=== PATIENT | female | born 1980 | race Caucasian/White ===

== ENCOUNTER 2019-08-05 16:18 | Emergency (ER) | payer BC ==
[2019-08-05 16:23] VITALS: BP 142/102
--- NOTE | 2019-08-05 16:39 | ED ---
Bite Injury/Animal - HPI Summary HPI Summary: 38-year-old female presents to the emergency department today after being bit by her peripheral dog approximately one hour ago to the dorsal aspect of her left foot. There is no obvious puncture wound consistent with patient's report dogbite approximately 1 cm in diameter proximal to the second phalanx on the dorsal aspect of the left foot. There is noted edema and mild ecchymosis but hemostasis is achieved. Patient states her dog is being put on this evening and she deferred rabies immunoglobulin as she believes her doctor for rabies. Patient is not up-to-date with her tetanus immunizations. Patient endorses 6 out of 10 pain which is made better with elevation and ice. pt states dog "has not had any shots in 2 years". Patient has not taken anything for pain prior to arrival. Patient otherwise feels well and denies fever, chest pain, abdominal pain, rash. Sx hx and fhx noncontributory. - History of Current Complaint Chief Complaint: EDAnimalBite Stated Complaint: ANIMAL BITE L FOOT PER PT Time Seen by Provider: 08/05/19 16:39 Hx Obtained From: Patient Onset of Injury: Happened hours ago Type of Bite: Pet Hx of Bite: Unprovoked Severity Initially: Moderate Severity Currently: Moderate Pain Intensity: 7 Pain Scale Used: 0-10 Numeric Character: Puncture Aggravating Factor(s): Exertion Alleviating Factor(s): Rest Associated Signs And Symptoms: Positive: Swelling. Negative: Fever, Erythema, Drainage, Lymphadenopathy, Numbness/Tingling, Limited ROM Animal Available for Observation: Yes Animal Control Notified: Yes - Allergies/Home Medications Allergies/Adverse Reactions: Allergies Allergy/AdvReac Type Severity Reaction Status Date / Time No Known Allergies Allergy Verified 08/05/19 16:23 PMH/Surg Hx/FS Hx/Imm Hx Endocrine/Hematology History: Reports: Hx Anemia - on iron Sensory History: Reports: Hx Contacts or Glasses Denies: Hx Hearing Aid Opthamlomology History: Reports: Hx Contacts or Glasses - Surgical History Surgery Procedure, Year, and Place: right knee arthroscopy 1998. 2008 , 2010 Hx Anesthesia Reactions: Yes - could still move with epidural, could feel, but was numb Infectious Disease History: No Infectious Disease History: Denies: Traveled Outside the [place] in Last 30 Days - Family History Known Family History: Positive: Non-Contributory - Social History Alcohol Use: None Substance Use Type: Reports: None Smoking Status (MU): Light Every Day Tobacco Smoker Amount Used/How Often: 5-10/day Review of Systems Constitutional: Negative Eyes: Negative ENT: Negative Cardiovascular: Negative Respiratory: Negative Gastrointestinal: Negative Genitourinary: Negative Positive: Arthralgia, Myalgia, Edema Skin: Negative Neurological: Negative Psychological: Normal All Other Systems Reviewed And Are Negative: Yes Physical Exam - Summary Physical Exam Summary: Inspection of the left foot reveals a 1 cm diameter puncture wound proximal to the second phalanges on the dorsal aspect left foot. Hemostasis achieved. Mild edema and ecchymosis noted circumferential around the puncture wound. Patient has full range of motion of her ankle and toes and the patient was able to ambulate. Triage Information Reviewed: Yes Vital Signs On Initial Exam: Initial Vitals Temp Pulse Resp BP Pulse Ox 98.1 F 105 16 142/102 100 08/05/19 16:20 08/05/19 16:20 08/05/19 16:20 08/05/19 16:20 08/05/19 16:20 Vital Signs Reviewed: Yes Appearance: Positive: Well-Appearing, No Pain Distress, Well-Nourished Skin: Positive: Warm, Skin Color Reflects Adequate Perfusion Eyes: Positive: EOMI, ISSA ENT: Positive: Hearing grossly normal Respiratory/Lung Sounds: Positive: Clear to Auscultation, Breath Sounds Present Cardiovascular: Positive: RRR, S1, S2 Abdomen Description: Positive: Nontender, Soft Musculoskeletal: Positive: Strength/ROM Intact Neurological: Positive: Sensory/Motor Intact, Alert, Oriented to Person Place, Time, Normal Gait, Facial Symmetry, Speech Normal Psychiatric: Positive: Normal, Affect/Mood Appropriate AVPU Assessment: Alert Procedures - Sedation Patient Received Moderate/Deep Sedation with Procedure: No Diagnostics - Vital Signs Vital Signs Temp Pulse Resp BP Pulse Ox 08/05/19 16:20 98.1 F 105 16 142/102 100 - Laboratory Lab Statement: Any lab studies that have been ordered have been reviewed, and results considered in the medical decision making process. Bite Injury Course/Dx - Course Course Of Treatment: He was evaluated in the emergency department today status post dog bite to left foot. Patient seen and examined her vitals were stable and she is afebrile. Patient's tetanus immunization was updated and she was given 1 dose of Augmentin in the emergency department. She is given a prescription for Augmentin 875 twice a day for 7 days. Patient's wound was cleaned and dressed by nursing staff. [facility] Department was contacted in regards to dog bite with possible rabies exposure at approximately 1703. Patient discharged with outpatient follow-up. - Diagnoses Differential Diagnosis/HQI/PQRI: Positive: Crush Injury, Fracture, Puncture, Rabies Exposure Provider Diagnosis: Open wound of left foot due to dog bite Discharge ED - Sign-Out/Discharge Documenting (check all that apply): Patient Departure - Discharge Plan Condition: Stable Disposition: HOME Prescriptions: Amoxicillin/Clavulanate TAB* [Augmentin TAB 875*] 875 mg PO BID 7 Days #14 tab Patient Education Materials: Animal Bite (ED) Referrals: Ludwin Hernandes MD [Medical Doctor] - 7 Days Additional Instructions: You were seen in the emergency department today due to a dog bite. While here your Tetanus immunization was updated and you were given an antibiotic, Augmentin. Please take Augmentin 875 twice daily for 7 days to protect yourself from possible infection from dog bite. You may elevate your foot, take ibuprofen 600 mg every 6 hours as needed for pain and swelling and apply ice to the area for 20 minutes on 20 minutes off as needed. Please return to activity as tolerated. Please follow up with your primary care physician in 7 days to ensure wound healing. Please return to the emergency department immediately if you develop any new or worsening symptoms. - Billing Disposition and Condition Condition: STABLE Disposition: Home
[2019-08-05] MEDS ORDERED: Amoxicillin/Clavulanate TAB* 875 MG PO ONE (16:47)
[2019-08-05] MEDS ORDERED: Tetan/Diph/Pertus SYR(Tdap)* 0.5 ML SYR(BOOSTRIX) use SYR contains LATEX IM ONE (16:47)
== END 2019-08-05 17:16 | disposition home or self-care (01) ==
LOC: ED 16:18
DX: S91.352A Open bite, left foot, initial encounter (principal); Z23 Encounter for immunization; W54.0XXA Bitten by dog, initial encounter; Y92.9 Unspecified place or not applicable; D64.9 Anemia, unspecified; F17.200 Nicotine dependence, unspecified, uncomplicated
CPT/HCPCS: 90471; 90715; 99282; A9270-GY

== ENCOUNTER 2019-10-06 06:44 | Emergency (ER) | payer BC ==
[2019-10-06] MEDS ORDERED: Acetaminophen TAB* 325 MG PO ONE (07:37)
[2019-10-06] MEDS ORDERED: Metoclopramide TAB* 10 MG PO ONE (07:38)
--- NOTE | 2019-10-06 07:38 | ED ---
Complex/Multi-Sys Presentation - HPI Summary HPI Summary: 38 year old F presenting to [facility] alone complains of left sided ear pain and left sided numbness of the tongue and cheek since yesterday afternoon 2019. Patient reports her left eye is not closing and LOO as well. Patient denies fever or numbness in the extremities. The patient rates the pain 8/10 in severity. Symptoms aggravated by nothing. Symptoms alleviated by nothing. NKDA noted. - History Of Current Complaint Chief Complaint: EDGeneral Time Seen by Provider: 10/06/19 07:29 Hx Obtained From: Patient Onset/Duration: Lasting Hours, Still Present Timing: Constant Aggravating Factor(s): nothing Alleviating Factor(s): nothing Associated Signs And Symptoms: Positive: Headache, Other - positive - left sided ear pair and left sided numbness in the tongue and cheek. negative - numbness in extremities. Negative: Fever - Allergies/Home Medications Allergies/Adverse Reactions: Allergies Allergy/AdvReac Type Severity Reaction Status Date / Time No Known Allergies Allergy Verified 08/05/19 16:23 Home Medications: Home Medications Hydrocortisone 1% Oint(NF) [Hydrocortisone 1% Oint (NF)] 1 applic .SEE ORDER BID #30 tube 06/18/18 [Rx] Amoxicillin/Clavulanate TAB* [Augmentin TAB 875*] 875 mg PO BID 7 Days #14 tab 08/05/19 [Rx] ValACYclovir (*) [Valtrex 1 GM(*)] 1 gm PO TID 7 Days #21 tab 10/06/19 [Rx] predniSONE 50 mg TAB [Deltasone 50 mg TAB] 50 mg PO DAILY 7 Days #7 tab [Rx] PMH/Surg Hx/FS Hx/Imm Hx Endocrine/Hematology History: Reports: Hx Anemia - on iron Sensory History: Reports: Hx Contacts or Glasses Denies: Hx Hearing Aid Opthamlomology History: Reports: Hx Contacts or Glasses - Surgical History Surgery Procedure, Year, and Place: right knee arthroscopy 1998. 2008 , 2010 Hx Anesthesia Reactions: Yes - could still move with epidural, could feel, but was numb Infectious Disease History: No Infectious Disease History: Denies: Traveled Outside the [place] in Last 30 Days - Family History Known Family History: Positive: Non-Contributory - Social History Alcohol Use: None Substance Use Type: Reports: None Smoking Status (MU): Light Every Day Tobacco Smoker Amount Used/How Often: 5-10/day Review of Systems Negative: Fever Neurological/Mental Status: Negative - negative - numbness in the extremities Positive: Headache, Numbness - Left sided ear pain as well as left sided numbness in the tongue and cheek All Other Systems Reviewed And Are Negative: Yes Physical Exam - Summary Physical Exam Summary: Constitutional: Well-developed, Well-nourished, Alert. (-) Distressed Skin: Warm, Dry HENT: Normocephalic; Atraumatic, Tympanic membranes lopez and pearly. Eyes: Conjunctiva normal Neck: Musculoskeletal ROM normal neck. (-) JVD, (-) Stridor, (-) Nuchal rigidity Cardio: Rhythm regular, rate normal, Heart sounds normal; Intact distal pulses; Radial pulses are 2+ and symmetric. (-) Murmur Pulmonary/Chest wall: Effort normal. (-) Respiratory distress, (-) Wheezes, (-) Rales Abd: Soft, (-) tenderness, (-) Distension, (-) Guarding, (-) Rebound Musculoskeletal: (-) Edema Lymph: (-) Cervical adenopathy Neuro: Alert, Oriented x3. Mild left sided facial paralysis including forehead, otherwise CN 2-12 intact. SILT UE/LE. Strength 5/5 UE LE Psych: Mood and affect Normal Triage Information Reviewed: Yes Vital Signs On Initial Exam: Initial Vitals Temp Pulse Resp BP Pulse Ox 98.7 F 93 20 139/96 99 10/06/19 06:46 10/06/19 06:46 10/06/19 06:46 10/06/19 06:46 10/06/19 06:46 Vital Signs Reviewed: Yes Procedures - Sedation Patient Received Moderate/Deep Sedation with Procedure: No Diagnostics - Vital Signs Vital Signs Temp Pulse Resp BP Pulse Ox 10/06/19 06:46 98.7 F 93 20 139/96 99 - Laboratory Lab Statement: Any lab studies that have been ordered have been reviewed, and results considered in the medical decision making process. Complex Multi-Symp Course/Dx Course Of Treatment: 38 y/o F w no PMH p/w L sided facial numbness and ear pain. -PE w mild paralysis of L side of face including forehead. L tympanic membrane lopez, pearly. Suspect 2/2 [place] Palsy. D/w patient eye patch, eye drops , return for worsening symptoms including fevers, severe headache, AMS. Given Tylenol and reglan for headache, no nuchal rigidity or fevers. Do not suspect PLANISHER involvement at this time. - Diagnoses Provider Diagnoses: Ni's palsy Discharge ED - Sign-Out/Discharge Documenting (check all that apply): Patient Departure - discharge - Discharge Plan Condition: Stable Disposition: HOME Prescriptions: predniSONE 50 mg TAB [Deltasone 50 mg TAB] 50 mg PO DAILY 7 Days #7 tab ValACYclovir (*) [Valtrex 1 GM(*)] 1 gm PO TID 7 Days #21 tab Patient Education Materials: Ni Palsy (ED) Referrals: No Primary Care Phys,NOPCP [Primary Care Provider] - Additional Instructions: You were seen in the emergency department for weakness and tingling of your face. 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 This is usually a temporary condition that causes weakness and paralysis of the muscle of your face. It is unknown the exact cause but it is thought to be due to some viral infections such as the herpes virus or Lyme. Please take prednisone 50 mg daily for a total of 7 days.y). Please take valacyclovir 1000 mg 3 times a day for one week. You should also use an eye patch at night and artificial tears as sometimes you eyelid will remain open and you can get dry eyes. Please return for severe headaches, confusion, fevers or if you are concerned. - Billing Disposition and Condition Condition: STABLE Disposition: Home - Attestation Statements Document Initiated by Jennifer: Yes Documenting Scribe: Humble Durant Provider For Whom Jennifer is Documenting (Include Credential): Dr.Caelyn Norma Caruso MD Scribe Attestation: I, Humble Durant , scribed for Dr.Caelyn Norma Caruso MD on 10/06/19 at 0811. Scribe Documentation Reviewed: Yes Provider Attestation: The documentation as recorded by the Humble gregg accurately reflects the service I personally performed and the decisions made by me, Dr.Caelyn Norma Caruso MD Status of Scribe Document: Viewed
[2019-10-06 08:15] VITALS: BP 126/91
== END 2019-10-06 08:14 | disposition home or self-care (01) ==
LOC: ED 06:44
DX: G51.0 Bell's palsy (principal); D64.9 Anemia, unspecified; F17.200 Nicotine dependence, unspecified, uncomplicated
CPT/HCPCS: 99282; A9270-GY